=== PATIENT | male | born 1965 | race Caucasian/White ===

== ENCOUNTER 2021-01-29 09:54 | Emergency (ER) | payer OTHER ==
[~2021-01-29] VITALS: Ht 165.1 cm; Wt 68.0 kg
[2021-01-29 09:56] VITALS: BP 152/81
--- NOTE | 2021-01-29 10:07 | NUR ---
PT AMBULATED TO ER BED 2.
--- NOTE | 2021-01-29 10:16 | NUR ---
55 Y/O MALE BIB SON C/O DIZZINESS X4DAYS DENIES SYNCOPE. PT STATES ROOM IS SPINNING. PT STATES +N/-V, DENIES FEVER/CHILLS, DENIES PAIN, DENIES SOB. PT STATES HE TOOK MECLIZINE AT HOME WITH NO RELIEF. PMH: GERD, GOUT NKA
[2021-01-29] MEDS ORDERED: diazePAM 5 MG TAB PO ONE (11:05)
--- NOTE | 2021-01-29 11:07 | NUR ---
PT TAKEN TO CT
--- NOTE | 2021-01-29 11:16 | NUR ---
PT RETURNED FROM CT
--- NOTE | 2021-01-29 11:16 | NUR ---
PT TAKEN TO ER BED 2 VIA [facility].
--- NOTE | 2021-01-29 11:27 | NUR ---
PT RESTING, HOB LOWERED FOR COMFORT, VSS, WILL CONTINUE TO MONITOR.
[2021-01-29] MEDS ORDERED: DIAZ2TAB6 PO (11:39)
[2021-01-29 12:04] VITALS: BP 116/81
--- NOTE | 2021-01-29 12:05 | NUR ---
Patient discharged with v/s stable. Written and verbal after care instructions given VERTIGO and explained. Patient alert, oriented and verbalized understanding of instructions. Ambulatory with steady gait. All questions addressed prior to discharge. ID band removed. Patient advised to follow up with PMD. Rx of VALIUM 2MG PO TID PRN DIZZINESS given. Patient educated on indication of medication including possible reaction and side effects. Opportunity to ask questions provided and answered.
== END 2021-01-29 12:02 | disposition home or self-care (01) ==
LOC: MED 09:54
DX: R42 Dizziness and giddiness (principal); Z79.899 Other long term (current) drug therapy
CPT/HCPCS: 70450; 99284